=== PATIENT | female | born 1940 | race Caucasian/White ===

== ENCOUNTER → 2019-09-30 | Outpatient (CLI) | payer MEDICARE ==
--- NOTE | 2019-10-05 14:31 | REP ---
Digital diagnostic bilateral mammography with CAD, 3-D tomography, and focused right breast sonography: History: New onset of diffuse tenderness throughout right breast worse from 6 o'clock to 10 o'clock. Personal history of breast cancer. Mastodynia. History of lumpectomy right breast. Comparison mammography has been retrieved from [facility] [place] dated July 16, 2018, July 10, 2017, and June 28, 2016. Mammographic findings: Scattered fibroglandular elements are again observed. There is a stable relatively low density nodule in the left breast laterally. Normal lymph nodes are seen in the left axilla unchanged. Bilateral vascular calcification is observed. There are post-treatment changes in the right breast including clips and contour deformity. A skin marker is affixed to the skin near the right axilla at the site of the palpable lump. Mammographic findings are unchanged. 3-D tomography images show no additional abnormality. Sonographic findings: The right axillary region is scanned in the area of the lump and palpable scar. The right breast is scanned from 6 o'clock to 11 o'clock. Fairly homogeneous fibroglandular background echotexture is seen. There is some fibrosis at the level of the surgical scar site. No mass lesion is seen. Impression: BIRADS 2: BI-RADS/ACR category 2 mammogram. Benign Findings. BIRADS category 2 benign findings. Clinical followup is advised. Bilateral screening mammography recommended 1 year. This mammogram was interpreted with the aid of an FDA-approved computer-aided detection system. Oral The patient states she had a clinical breast exam in September 2019. The patient letter being requested is m2. Electronically Signed by Thomas Christopher MD 10/05/2019 03:21 P
== END ==
LOC: M RAD 13:02
PROVIDERS: ATTEND Nurse Practitioner Women's Health
DX: Z85.3 Personal history of malignant neoplasm of breast (principal); N64.4 Mastodynia
CPT/HCPCS: 76642; 77066; G0279

== ENCOUNTER → 2023-01-09 | Outpatient (REF) | payer MEDICARE, BC ==
[2023-01-09 18:18] LABS: CREATININE, URINE 60.2 MG/DL; MAU/CREAT RATIO 34.8 MCG/MG (0.0-30.0)
== END ==
LOC: M LAB REF 17:14
PROVIDERS: ATTEND Nurse Practitioner Family
DX: E11.65 Type 2 diabetes mellitus with hyperglycemia (principal)

== ENCOUNTER → 2023-09-05 | Outpatient (REF) | payer MEDICARE | LOC: EEVIPCON 11:44 → M PLALAB 11:44 | PROVIDERS: ATTEND Nurse Practitioner Family | DX: N39.0 Urinary tract infection, site not specified (principal) ==

== ENCOUNTER → 2023-11-20 | Outpatient (REF) | payer MEDICARE ==
[2023-11-20 18:35] LABS: MAU/CREAT RATIO 11.4 MCG/MG (0.0-30.0)
== END ==
LOC: M LAB REF 17:14
PROVIDERS: ATTEND Nurse Practitioner Family
DX: E11.65 Type 2 diabetes mellitus with hyperglycemia (principal)